=== PATIENT | male | born 1950 | race Caucasian/White ===

== ENCOUNTER 2020-04-13 14:00 | Emergency (ER) | payer MEDICAID, MEDICARE ==
[~2020-04-13] VITALS: Ht 175.3 cm; Wt 80.0 kg
[2020-04-13 14:08] VITALS: BP 151/93
--- NOTE | 2020-04-13 14:28 | NUR ---
FIRST CONTACT WITH PT. PT CAME IN CO DENTAL PAIN. PT'S AOX4. RESPS EVEN AND UNLABORED.
[2020-04-13] MEDS ORDERED: HYDROcodone/APAP 5/325 TABLET ONE (14:37)
--- NOTE | 2020-04-13 14:39 | NUR ---
pt medicated per emar. pt tolerated well.
[2020-04-13] MEDS ORDERED: HYDROcodone/APAP 5/325 TABLET PO ONE (15:00)
--- NOTE | 2020-04-13 15:15 | NUR ---
Patient given discharge instructions and they have confirmed that they understand the instructions. Patient ambulatory with steady gait.
== END 2020-04-13 15:16 ==
LOC: ED 15:10
DX: K04.7 Periapical abscess without sinus (principal); E11.9 Type 2 diabetes mellitus without complications
CPT/HCPCS: 99283